=== PATIENT | female | born 1945 | race Caucasian/White ===

== ENCOUNTER 2022-04-07 17:48 | Emergency (ER) | payer OTHER, MEDICARE, BC, SELFPAY ==
[2022-04-07] VITALS (35 sets, daily range): BP systolic 127–210; BP diastolic 59–129; PULSE 52–85; RESP 12–52; O2SAT 86–100
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
--- NOTE | 2022-04-07 18:18 | ED.GENADULT ---
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 acetaminophen/Tylenol/paracetamol in it, DO NOT TAKE MORE THAN 4,00mg in 24 hours of Tylenol. TRAMADOL DOES NOT CONTAIN TYLENOL 2. Please understand that we cannot provide further refills of narcotics, benzodiazepines or controlled substances through the ED and her pain management will need to be through your provider. 3. While on these medications you cannot drive or operate heavy machinery. 4. You cannot sign legal documents or perform any duties such as this. 5. As long as you're taking opiate pain medications he should also be taking a stool softener such as Colace, Dulcolax, MiraLAX or prune juice, to help avoid constipation. Prescriptions: New oxycodone-acetaminophen [Percocet] 5-325 mg tablet 1 tab PO Q6H PRN (Reason: pain) Qty: 10 0RF acetaminophen-codeine 300-15 mg tablet 1 tab PO QID PRN (Reason: pain) Qty: 14 0RF Referrals: Desiree Welch PA-C [Family Provider] - Visit Report Forms: Patient Portal/API
[2022-04-07] MEDS: SODIUM CHLORIDE 0.9% 1,000 ML 125 ML IV (18:20)
--- NOTE | 2022-04-07 18:22 | PC.NURSE ---
Pt log rolled during inital assessment with Dr Calderon and back board removed.
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
[2022-04-07 18:25] LABS: Add Manual Diff / Slide Review NO; Basophils Absolute Auto 0 /uL (0-100); Basophils Percent Auto 0.7 % (0-2); Eosinophils Absolute Auto 100 /uL (0-450); Eosinophils Percent Auto 1.9 % (2-4); Hematocrit 42.1 % (36-46); Hemoglobin 14.3 g/dL (12.0-16.0); Lymphocytes Absolute Auto 1400 /uL (1100-4500); Lymphocytes Percent Auto 26.5 % (25-40); Mean Corpuscular Hemoglobin 31.1 PG (26-34); Mean Corpuscular Volume 91.5 fL (80-100); Monocytes Absolute Auto 500 /uL (0-900); Monocytes Percent Auto 9.5 % (3-14); Neutrophils Absolute Auto 3100 /uL (1500-7000); Neutrophils Percent Auto 61.4 % (50-75); Platelet Count 148 X10^3/uL (150-400); Red Blood Cell Count 4.59 X10^6/uL (4.0-5.2); Red Cell Distribution Width 14.3 % (11.6-14.8); White Blood Cell Count 5.1 X10^3/uL (4.5-11.0)
[2022-04-07] MEDS: MORPHINE 2 MG/ML INJ IV ×2 (18:40→21:33)
[2022-04-07 18:45] LABS: INR 0.9 (0.9-1.3); Prothrombin Time 10.8 SECONDS (10.1-12.7)
[2022-04-07 18:47] LABS: PTT Partial Thromboplastin Tim 28 SECONDS (26-36)
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
[2022-04-07 19:02] LABS: Lactate (Lactic Acid) 1.7 mmol/L (0.7-2.1)
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
[2022-04-07 19:06] LABS: Alanine Aminotransferase 27 IU/L (<35); Albumin 3.8 g/dL (3.5-5.0); Albumin Globulin Ratio 1.5 (1.0-2.8); Alkaline Phosphatase 124 U/L (38-126); Aspartate Aminotransferase 38 IU/L (14-36); BUN Creatinine Ratio 21.6 (6-22); Bilirubin Total 0.3 mg/dL (0.2-1.3); Blood Urea Nitrogen 24 mg/dL (7-17); Calcium 8.9 mg/dL (8.4-10.2); Carbon Dioxide 24 mmol/L (22-32); Chloride 102 mmol/L (98-107); Creatine Kinase 120 U/L (30-135); Estimated Glomerular Filt Rate 51 mL/min (>60); Ethanol (ETOH) < 10 mg/dL; Globulin 2.6 g/dL (1.7-4.1); Glucose 120 mg/dL (80-110); HEMOLYSIS 19 (0-50); Lipase 109 U/L (23-300); Potassium 3.8 mmol/L (3.4-5.1); Sodium 136 mmol/L (137-145); Total Protein 6.4 g/dL (6.3-8.2)
--- NOTE | 2022-04-07 19:10 | PC.NURSE ---
Report received - assumed care of pt at this time
--- NOTE | 2022-04-07 19:14 | PC.NURSE ---
Pt's two rings taken off right hand and placed in a bag and labeled.
[2022-04-07 19:15] LABS: Troponin I < 0.012 ng/mL (0.01-0.034)
--- NOTE | 2022-04-07 19:15 | PC.NURSE ---
Xray at bedside
--- NOTE | 2022-04-07 19:15 | PC.NURSE ---
MD at bedside to staple the lac to the pt's head - tolerated well
[2022-04-07 19:20] LABS: CKMB % Relative Index 2.9 % (1.5-5.0); Creatine Kinase MB 3.44 ng/mL (<2.37)
--- NOTE | 2022-04-07 19:30 | PC.NURSE ---
speaking with grand daughter on the phone - alert and oriented - PWD with respirations equal and unlabored bilaterally - airway patent - speaking in full clear sentences
--- NOTE | 2022-04-07 19:45 | PC.NURSE ---
towels changed behind the patient's head as they were wet - warm blankets applied for warmth and comfort wound care performed to scalp and right hand - face and hand and head gently cleaned of dried blood - xeroform gauze applied to the 2 abrasions/skin tears to the right hand and wrist after being cleansed and dried - covered with telfa gauze pad and kendra wrap used to hold in place - tolerated well
--- NOTE | 2022-04-07 20:00 | PC.NURSE ---
Lights dimmed and assisted to position of comfort - pt resting quietly at this time
[2022-04-07 20:01] LABS: COVID19 -Nasal RAPID Negative (Negative)
--- NOTE | 2022-04-07 20:45 | PC.NURSE ---
In room to recheck the patient - states that she is hurting when she moves - bed adjusted in small increments to assist with the pain - tolerates with difficulty
--- NOTE | 2022-04-07 20:50 | PC.NURSE ---
Son to bedside
[2022-04-07] MEDS: NALOXONE 0.4 MG/ML VIAL IV (21:52)
--- NOTE | 2022-04-07 22:00 | PC.NURSE ---
2100: Patient assisted to get up and dressed - stated that she was dizzy when she first sat up - would like pain medication - states that she is unable to take hydrocodone and oxycodone due to an allergic reaction that almost killed her - states that she did ok with the morphine today and that she can take tylenol with codeine - discussed with the MD - orders to give the patient a small dose of morphine IV prior to leaving the ER as well as tylenol - pt ok with plan 0: Up to the bedside commode - clear yellow urine noted 5: pt sitting in bedside chair - doing well - dressed and ready to go home - able to move around the room with slow steady gait 3: medicated with IV morphine at this time 5: pt states that she is feeling dizzy at this time - speaking clearly in NAD - airway patent 2136: pt states that she is nauseas and dizziness is worse 2137: pt starting to fall asleep - shaking legs/feet - asked if she is ok - responds with slurred unintelligable words 2138: pt's head falls back and she begins to have snoring respirations - pulse ox placed on pt and her O2 on RA was 98% - assistance and MD called to room 2139: pt lifted to the bed - unresponsive - incontinent of urine 2140: placed on job cost estimator with cycling BP and continuous pulse ox - IV started to the left hand by MARIA DEL ROSARIO Zaragoza 2141: Md at bedside - pt responds to painful stimuli 2143: RT at bedside 2145: placed on 2L of O2 via NC and capnography 2150: given 0.1 of narcan IV - small movement of hand otherwise no response 2152: given 0.1 of narcan IV 2155: pt awakening at this time - does not remember the event - son at bedside - pt to continue being monitored for further reaction 2200: Continues to awaken more - speaking in clear sentences at this time - c/o headache and pain all over - airway patent - PWD with respirations equal and unlabored bilaterally - son at bedside
--- NOTE | 2022-04-07 22:30 | PC.NURSE ---
Repositioned to her left side for comfort - yells out in pain as she moves - able to reposition by self - recovered with warm blankets - speaking reno RN and family at bedside - states that her head hurts - clear voice - clear speech - airway patent - PWD - alert
--- NOTE | 2022-04-07 23:00 | PC.NURSE ---
Pt continues to rest quietly - yells out when moves stating that she feels like shit because she is hurting so much - awake and alert - respirations equal and unlabored bilaterally - PWD - Son at bedside - pt states that she wants to go home at this time - MD aware of pt's status
--- NOTE | 2022-04-07 23:15 | PC.NURSE ---
Assisted to stand and get dressed - up to w/c at bedside - alert and oriented - dizzy with changing positions but gets better when sitting still for a few minutes
[2022-04-07] MEDS: ACETAMINOPHEN 325 MG TABLET 975 MG PO (23:35)
== END 2022-04-07 23:43 | disposition home or self-care (01) ==
PROVIDERS: Emergency Provider Emergency Medicine; Family Provider Physician Assistant Medical; PCP Physician Assistant Medical
DX: S01.01XA Laceration without foreign body of scalp, initial encounter (principal); M79.601 Pain in right arm; R55 Syncope and collapse; V43.52XA Car driver injured in collision with other type car in traffic accident, initial encounter; Z20.822 Contact with and (suspected) exposure to COVID-19
CPT/HCPCS: 12001; 70450; 71045; 71260; 72125; 73060; 73080; 73090; 74177; 80053; 80320; 82550; 82553; 82962; 83605; 83690; 84484; 85025; 85610; 85730; 86850; 86870; 86900; 86901; 87635; 93005; 93010; 96361; 96374; 96376; 99285; 99291; 99292; C9803; J2270; J2310; Q9967

== ENCOUNTER → 2023-09-17 12:26 | Outpatient (CLI) | payer MEDICARE, BC, SELFPAY ==
--- NOTE | 2023-09-17 | DI.CT.S_ITS ---
PROCEDURE: CT SHOULDER RIGHT WITH CON INDICATIONS: ROTATOR CUFF SYNDROME TECHNIQUE: After the intra-articular administration of 12 mL of dilute non-ionic contrast, 1-1.5 mm thick sections acquired from the acromioclavicular joint to the inferior scapula, with coronal and sagittal reformatting. COMPARISON: [facility], CR, XR SHOULDER 2+ VIEWS RIGHT, 08/26/2023, 10:31[facility], RF, [place] SHOULDER INJECTION MR/CT RT, 09/17/2023, 12:04. FINDINGS: Image quality: Diagnostic Bones: The right acromioclavicular joint is unremarkable. The right clavicle is intact. Intra-articular contrast is seen in the right glenohumeral joint. No significant degenerative changes of the right glenohumeral joint. No acute fracture or dislocation of the right shoulder. The visualized right ribs are unremarkable. Soft tissues: No right axillary adenopathy. Ruptured right breast implant. Multiple pulmonary nodule in the right lung, with the largest measuring 6 mm (series 3, image 101), grossly unchanged in comparison to CT chest from 04/07/2022, favoring benign etiology given stability.. Moderate calcification of the aortic arch. Severe mitral annular calcification, partially visualized. No intra-articular contrast within the subacromial/subdeltoid space to suggest full-thickness tear of the supraspinatus and infraspinatus.. No significant fatty atrophy of the rotator cuff musculature. IMPRESSION: 1. No full-thickness tear of the supraspinatus or infraspinatus. 2. No significant degenerative changes of the acromioclavicular or glenohumeral joint. Dictated by: Brandy Christian M.D. on 09/17/2023 at 15:44 Approved by: Brandy Christian M.D. on 09/17/2023 at 15:54
--- NOTE | 2023-09-17 | DI.RAD.S_ITS ---
PROCEDURE: [place] SHOULDER INJECTION MR/CT RT INDICATIONS: ROTATOR CUFF SYNDROME COMPARISON: [facility], CT, CT SHOULDER RIGHT WITH CON, 09/17/2023, 13:23. TECHNIQUE: The indications, alternatives, benefits, risks, and complications of the procedure were explained to the patient. Written informed consent was obtained and placed in the chart. The shoulder was examined fluoroscopically and a site for needle placement chosen for entry into the glenohumeral joint from an anterior approach. The skin was prepped and draped in a sterile fashion, and 1% lidocaine infiltrated from skin down to joint capsule. A spinal needle was inserted into the glenohumeral joint, and a small amount of iodinated contrast media injected to confirm intra-articular placement of the needle tip. This was followed by approximately 12 mL of iodinated contrast. The needle was removed and a dressing was applied. The patient was given postprocedural instructions and sent to the CT suite for imaging. FINDINGS: A single fluoroscopic spot image demonstrates intra-articular location of injected iodinated contrast. IMPRESSION: Successful fluoroscopically guided administration of iodinated contrast solution into the shoulder joint for CT arthrogram. Dictated by: Roberto Campos M.D. on 09/17/2023 at 23:45 Approved by: Roberto Campos M.D. on 09/17/2023 at 23:46
[2023-09-17] MEDS: LIDOCAINE 1% 20 ML INJ (14:27)
== END ==
PROVIDERS: Family Provider Physician Assistant Medical; PCP Physician Assistant Medical; Referring Provider Orthopaedic Surgery; Visit Provider Orthopaedic Surgery
DX: M75.101 Unspecified rotator cuff tear or rupture of right shoulder, not specified as traumatic (principal)
CPT/HCPCS: 23350; 73040; 73201; Q9967

== ENCOUNTER → 2023-11-19 09:46 | Outpatient (CLI) | payer MEDICARE, BC, SELFPAY ==
--- NOTE | 2023-11-19 09:48 | DI.NM.S_ITS ---
PROCEDURE: NM RICKEY PERF SPECT R&S PHARM Rest and pharmacological stress myocardial perfusion SPECT with gated imaging and ejection fraction RADIOPHARMACEUTICAL: 12.5 mCi Tc-99m tetrafosmin IV at rest and 24.5 mCi Tc-99m tetrafosmin IV at peak effect of pharmacological stress. A [id number] was performed. INDICATIONS: Shortness of breath TECHNIQUE: Radiopharmaceutical was injected at peak stress test, and also at rest. SPECT images were obtained. SPECT myocardial perfusion images were displayed in short axis, horizontal long axis, and vertical long axis views. Gated images were reviewed using [employer] software. COMPARISON: None. CARDIAC STRESS: An exercise stress test was performed with a standard Garth protocol 2:51, maximum heart rate 105 bpm (80% peak predicted), maximum blood pressure 152/70, 4.6 METS AGUSTINA +24%. Due to excessive shortness of breath and 6 out of 10 chest pressure the test was switched to a pharmacologic study. A pharmacologic stress test was performed under the supervision of an attending staff, using an infusion of regadenoson 0.4 mg IV. Hemodynamic data: There is normal blood pressure and heart rate response to pharmacologic stress. Symptoms: The patient denied anginal chest pain. EKG: No diagnostic changes of ischemia; no ectopy. FINDINGS: Raw data: There is good myocardial uptake of radiotracer. No significant motion artifacts. Qqnh-hu-htvnl ratio is 0.30 (normal is less than 0.38 for tetrafosmin tracer). Left ventricle function: Gated images demonstrate normal left ventricular wall thickening. No segmental wall motion abnormalities. No transient ischemic dilation; TID is 1.18 (normal less than 1.3). Left ventricle resting end diastolic volume is 73 mL. Left ventricle stress ejection fraction is >75%; normal range is above 45%. Myocardial perfusion: There is normal distribution of activity in the right and left ventricular myocardium. No fixed or reversible perfusion defects. IMPRESSION: Exercise stress test converted to a pharmacologic study due to excessive shortness of breath and exercise-induced chest pressure. Low risk pharmacologic study. No evidence of pharmacologic induced ischemia or scar. Normal LV size with hyperdynamic function. Dictated by: Shanelle Garcia D.O. on 11/19/2023 at 17:19 Approved by: Shanelle Garcia D.O. on 11/19/2023 at 17:24
== END ==
PROVIDERS: Family Provider Physician Assistant Medical; PCP Physician Assistant Medical; Referring Provider Physician Assistant Medical; Visit Provider Physician Assistant Medical
DX: R06.02 Shortness of breath (principal)
CPT/HCPCS: 78452; 93017; A9502; J2785

== ENCOUNTER → 2024-01-25 10:39 | Outpatient (CLI) | payer MEDICARE, BC, SELFPAY | PROVIDERS: Family Provider Physician Assistant Medical; PCP Physician Assistant Medical; Referring Provider Internal Medicine Cardiovascular Disease; Visit Provider Internal Medicine Cardiovascular Disease | DX: R06.02 Shortness of breath (principal); Z87.891 Personal history of nicotine dependence | CPT/HCPCS: 94010; 94726; 94729 ==

== ENCOUNTER 2024-06-09 09:43 | Emergency (ER) | payer MEDICARE, BC, SELFPAY ==
[2024-06-09] VITALS (14 sets, daily range): BP systolic 129–194; BP diastolic 61–98; PULSE 52–90; RESP 12–35; TEMP 36.5; O2SAT 95–99
--- NOTE | 2024-06-09 10:12 | PC.NURSE ---
PT reports that she had a bout of diarrhea yesterday. Pt is speaking in full sentences. VSS. Denies pain. Just feeling off.
--- NOTE | 2024-06-09 10:15 | EKG_ITS ---
[place] [id number] [place] [id number] Test Date: 2024-06-09 Pat Name: Magali Hernadez Department: [facility] Room: Gender: Female Fitness Manager: RAZA : 1945 Requested By: Order Number: [id number] Reading MD: Jacobo Palmer MD Measurements Intervals [place] Rate: 61 P: ID: [id number] QRS: 60 QRSD: 84 T: 49 QT: 408 QTc: 410 Interpretive Statements Normal sinus rhythm Electronically Signed On 06-09-2024 16:25:11 PST by Jacobo Palmer MD
--- NOTE | 2024-06-09 10:28 | ED_ITS ---
HPI - General Adult General Chief complaint: Weakness Stated complaint: Starting feeling Dizzy, Lips are numb Time Seen by Provider: 06/09/24 10:25 Source: patient, RN notes reviewed and old records reviewed Mode of arrival: Wheelchair Limitations: no limitations History of Present Illness HPI narrative: 79-year-old female history of single kidney, prior unilateral mastectomy with complaint of diarrhea that she describes as the worst of her life starting at 2:30 a.m. yesterday she states she only had 1 episode last night and about 2 episodes today she describes it as watery and looking like enchilada sauce. Patient states she has not had any fevers she has had little bit of nausea here in the department but was not really having it before. States no chest pain no shortness of breath, patient has had some mild abdominal discomfort but states not a lot. She denies any dysuria urgency or frequency. Patient states today she had brought her daughter to wound care and was driving home when she was started to feel sort of lightheaded and her lips felt tingling and numb and she felt weird. She took a glucose tab she thought her sugar might be low but did not have any improvement. Patient does note she has had some leg cramping but this is not brand new. She does not have any known recent sick contacts. Patient states she was not on any prescription medications. Has a history of unilateral mastectomy in 1986, ex lap to evaluate kidney she does have a single kidney, hysterectomy and multiple orthopedic surgeries. States allergic to narcotics such as hydrocodone, she also does not tolerate yeast typically gets bad abdominal pain and cramping states this is different than that type of symptom. No tobacco, alcohol or recreational drugs. Mark Anthony lui as her primary care. She is accompanied by her daughter. Related Data Previous Rx's Medication Instructions Recorded acetaminophen 300 mg-codeine 15 mg 1 tab PO QID PRN pain #14 tabs 04/07/22 tablet oxycodone-acetaminophen 5 mg-325 1 tab PO Q6H PRN pain #10 tabs 04/07/22 mg tablet (Percocet) Allergies Allergy/AdvReac Type Severity Reaction Status Date / Time oxycodone Allergy Unknown Verified 04/07/22 17:54 Review of Systems Review of Systems ROS Unobtainable: All systems reviewed & are unremarkable except as noted in HPI and below Patient History Social History lives independently: Yes Smoking Status: Never smoker Smoking Status: Never smoker alcohol intake frequency: 0-2 drinks per day Exam Narrative Exam Narrative: GENERAL: Alert and oriented x three, female in mild distress HEENT: Head normocephalic, atraumatic, EOMI, pupils reactive, face symmetric, moist mucous membranes NECK: Supple, full range of motion CARDIOVASCULAR: Regular rate and rhythm without murmurs, rubs or gallops. RESPIRATORY: Breath sounds equal bilaterally, no wheezes rales or rhonchi. ABDOMEN: Soft, patient has some mild generalized tenderness. Normoactive bowel sounds all 4 quadrants. No guarding or rebound, rigidity, no mass : No CVA tenderness EXTREMITIES: Normal range of motion, no clubbing or edema. Neurovascularly intact NEUROLOGICAL: Cranial nerves II through XII grossly intact. Moving all extremities SKIN: Warm, dry, no petechiae, no rashes or lesions. Initial Vital Signs Initial Vital Signs: Vital Signs Pulse Rate 66 06/09/24 09:52 Respiratory Rate 21 06/09/24 09:52 Pulse Oximetry 98 06/09/24 09:52 Course Orders Ordered: ED Orders 06/09/24 10:05 Hepatic (Liver) Panel Stat Lipase Stat 06/09/24 10:08 Basic Metabolic Panel Stat Complete Blood Count AUTO DIFF Stat Troponin I Stat 06/09/24 10:15 EKG-12 Lead Stat 06/09/24 11:09 CT abdomen pelvis w con Stat 06/09/24 11:26 Covid-19 + FLU A/B + RSV - PCR Stat Discontinued Medications Sodium Chloride (Normal Saline 0.9%) 1,000 mls @ 150 mls/hr IV CONT DAVIDE Last Admin: 06/09/24 10:28 Dose: Not Given Documented By: Sodium Chloride (Normal Saline 0.9%) 1,000 mls @ 1,000 mls/hr IV BOLUS ONE Stop: 06/09/24 12:08 Last Infusion: 06/09/24 12:05 Dose: Infused Documented By: Admin: 06/09/24 11:16 Dose: 1,000 mls/hr Documented By: Ondansetron HCl (Ondansetron 4 Mg/2 Ml Inj) 4 mg IV NOW ONE Stop: 06/09/24 11:10 Last Admin: 06/09/24 11:16 Dose: 4 mg Documented By: Vital Signs Vital signs: Vital Signs - 8 hr 06/09/24 11:00 06/09/24 11:00 06/09/24 11:31 Pulse Rate 59 L 62 Respiratory Rate 21 35 H Blood Pressure 129/71 Pulse Oximetry 97 98 Oxygen Delivery Method 06/09/24 11:33 06/09/24 11:33 06/09/24 12:01 Pulse Rate 59 L 67 Respiratory Rate 16 28 H Blood Pressure 180/77 H Pulse Oximetry 99 95 Oxygen Delivery Method 06/09/24 12:03 06/09/24 12:03 06/09/24 12:04 Pulse Rate 53 L Respiratory Rate 16 Blood Pressure 194/71 H 186/81 H Pulse Oximetry 98 Oxygen Delivery Method 06/09/24 12:04 06/09/24 12:30 06/09/24 12:31 Pulse Rate 54 L 52 L Respiratory Rate 17 12 Blood Pressure 175/76 H Pulse Oximetry 99 99 Oxygen Delivery Method 06/09/24 12:31 06/09/24 13:00 06/09/24 13:01 Pulse Rate 52 L 54 L 55 L Respiratory Rate 20 15 16 Blood Pressure 160/70 H Pulse Oximetry 99 99 99 Oxygen Delivery Method Room Air 06/09/24 13:01 Pulse Rate 53 L Respiratory Rate 18 Blood Pressure Pulse Oximetry 99 Oxygen Delivery Method Medical Decision Making Lab Data 06/09/24 10:08 06/09/24 10:08 Labs: Lab Results 06/09/24 06/09/24 06/09/24 Range/Units 10:05 10:08 11:26 WBC 4.3 L (4.5-11.0) X10^3/uL RBC 4.73 (4.0-5.2) X10^6/uL Hgb 15.0 (12.0-16.0) g/dL Hct 44.4 (36-46) % MCV 93.9 (80-100) fL MCH 31.7 (26-34) PG MCHC 33.7 (30-36) % RDW 14.0 (11.6-14.8) % Plt Count 158 (150-400) X10^3/uL Neut % (Auto) 57.9 (50-75) % Lymph % (Auto) 30.1 (25-40) % [place] % (Auto) 9.2 (3-14) % Eos % (Auto) 2.1 (2-4) % Baso % (Auto) 0.7 (0-2) % Neut # (Auto) 2500 (4554-2832) /uL Lymph # (Auto) 1300 (1714-2346) /uL [place] # (Auto) 400 (0-900) /uL Eos # (Auto) 100 (0-450) /uL Baso # (Auto) 0 (0-100) /uL Sodium 140 (137-145) mmol/L Potassium 4.4 (3.4-5.1) mmol/L Chloride 106 (98-107) mmol/L Carbon Dioxide 26 (22-32) mmol/L BUN 18 H (7-17) mg/dL Creatinine 0.99 (0.52-1.04) mg/dL Estimated GFR 57 L (>60) mL/min BUN/Creatinine Ratio 18.2 (6-22) Glucose 125 H (80-110) mg/dL Calcium 9.8 (8.4-10.2) mg/dL Total Bilirubin 0.4 (0.2-1.3) mg/dL Conjugated Bilirubin 0.0 (0.0-0.3) md/dL Unconjugated Bilirubin 0.2 (0.0-1.1) mg/dL AST 28 (14-36) IU/L ALT 23 (<35) IU/L Alkaline Phosphatase 82 (38-126) U/L Troponin I < 0.012 (0.01-0.034) ng/mL Total Protein 6.1 L (6.3-8.2) g/dL Albumin 3.9 (3.5-5.0) g/dL Globulin 2.2 (1.7-4.1) g/dL Albumin/Globulin Ratio 1.8 (1.0-2.8) Lipase 97 (23-300) U/L SARS-CoV-2 (PCR) Negative (Negative) Influenza A (RT-PCR) Flu a negative (NEGATIVE) Influenza B (RT-PCR) Flu b negative (NEGATIVE) RSV (PCR) Negative (Negative) Point of Care Testing Glucose POC 153 Urine Dip Bedside Urine Glucose Negative Bedside Urine Bilirubin - Negative Bedside Urine Ketone - Negative Urine Specific [place] 1.010 Bedside Urine Occult Blood - Negative Bedside Urine pH 6.0 Bedside Urine Protein - Negative Bedside Urine Urobilinogen - Negative Bedside Urine Nitrite - Negative Bedside Urine Leukocytes - Negative Esterase Point of care testing: Point of Care Testing Glucose POC 153 Urine Dip Bedside Urine Glucose Negative Bedside Urine Bilirubin - Negative Bedside Urine Ketone - Negative Urine Specific [place] 1.010 Bedside Urine Occult Blood - Negative Bedside Urine pH 6.0 Bedside Urine Protein - Negative Bedside Urine Urobilinogen - Negative Bedside Urine Nitrite - Negative Bedside Urine Leukocytes - Negative Esterase ECG Data Attestation: I personally reviewed and interpreted this ECG as follows: Interpretation: Sinus rhythm rate of 61 [place] 182 QRS 84 QTC of 410. Appears to have little bit of motion artifact MDM Narrative Medical decision making narrative: Labs show white count of 4.3 hemoglobin and platelets are appropriate. Coags are negative, electrolytes are appropriate BUN 18 creatinine 0.99 glucose is 125 calcium is 9.8 troponins less than 0.012 Hepatic profile normal bilirubin AST ALT and alk-phos lipase is 97. COVID/influenza/RSV is negative EKG shows sinus rhythm CT abdomen pelvis shows no acute change Point of care urine is negative Patient received fluids and Zofran. On recheck patient feels slightly improved does not feel lightheaded or like she was going to pass out. Has not any additional episodes of diarrhea except for 1 here which we did not get a sample. Patient did have a bowel movement here but did not give a sample. Overall has a benign exam has been afebrile nontoxic appearing and felt appropriate for discharge home suspect she may have a gastroenteritis but discussed with the patient watchful waiting and return precautions if there is other potential for her symptoms. Patient feels comfortable with discharge home. States the Zofran did not make much difference she did not really feel all that nauseated so we will hold off can try a little bit of Imodium [id number]. Discussed return precautions all questions answered. Discharge Plan Departure Patient Disposition: Home Clinical Impression: Diarrhea Activity Restrictions/Additional Instructions: Please follow up for recheck your workup today did not show a clear source for your symptoms but there is potential that you may have little bit of a viral gastroenteritis. You can take Imodium [id number] for diarrhea. Please return for fevers, new abdominal pain, back or flank pain, any persistent vomiting, black or bloody stools, lightheadedness or passing out or other new or concerning changes. Prescriptions: No Action oxycodone-acetaminophen [Percocet] 5-325 mg tablet 1 tab PO Q6H PRN (Reason: pain) Qty: 10 0RF acetaminophen-codeine 300-15 mg tablet 1 tab PO QID PRN (Reason: pain) Qty: 14 0RF Referrals: Dayami Lui PA-C [Primary Care Provider] - Stand Alone Forms: Patient Portal/API/Survey
[2024-06-09 10:36] LABS: BUN Creatinine Ratio 18.2 (6-22); Blood Urea Nitrogen 18 mg/dL (7-17); Calcium 9.8 mg/dL (8.4-10.2); Carbon Dioxide 26 mmol/L (22-32); Chloride 106 mmol/L (98-107); Estimated Glomerular Filt Rate 57 mL/min (>60); Glucose 125 mg/dL (80-110); HEMOLYSIS 19 (0-50); Potassium 4.4 mmol/L (3.4-5.1); Sodium 140 mmol/L (137-145)
[2024-06-09 10:39] LABS: Add Manual Diff / Slide Review NO; Basophils Absolute Auto 0 /uL (0-100); Basophils Percent Auto 0.7 % (0-2); Eosinophils Absolute Auto 100 /uL (0-450); Eosinophils Percent Auto 2.1 % (2-4); Hematocrit 44.4 % (36-46); Lymphocytes Absolute Auto 1300 /uL (1100-4500); Lymphocytes Percent Auto 30.1 % (25-40); Mean Corpuscular HGB Conc 33.7 % (30-36); Mean Corpuscular Hemoglobin 31.7 PG (26-34); Mean Corpuscular Volume 93.9 fL (80-100); Monocytes Absolute Auto 400 /uL (0-900); Monocytes Percent Auto 9.2 % (3-14); Neutrophils Absolute Auto 2500 /uL (1500-7000); Neutrophils Percent Auto 57.9 % (50-75); Platelet Count 158 X10^3/uL (150-400); Red Blood Cell Count 4.73 X10^6/uL (4.0-5.2); White Blood Cell Count 4.3 X10^3/uL (4.5-11.0)
[2024-06-09 10:48] LABS: Troponin I < 0.012 ng/mL (0.01-0.034)
--- NOTE | 2024-06-09 11:09 | DI.CT.S_ITS ---
PROCEDURE: CT ABDOMEN PELVIS W CON INDICATIONS: diarrhea x 24hours, abd pain TECHNIQUE: After the administration of intravenous contrast, axial sections acquired from the lung bases to the pubic symphysis. Coronal and sagittal reformats were performed. For radiation dose reduction, the following was used: automated exposure control, adjustment of mA and/or kV according to patient size. COMPARISON: None. FINDINGS: Image quality: Diagnostic. Lower Chest: No significant findings. ABDOMEN: Liver: No solid mass. Gallbladder: No radiopaque gallstones or wall thickening. Biliary ducts: No biliary dilation. Pancreas: No ductal dilation. Spleen: Size is within normal limits. Adrenal Glands: No adrenal nodules. Kidneys and Ureters: No hydronephrosis. No solid mass. No complex renal cystic lesion which requires follow up. Stomach and Bowel: Normal colonic caliber, without significant wall thickening. Peritoneum: No abnormal intraperitoneal fluid. No free air. Ventral Wall: No significant ventral hernia. Abdominal Nodes: No retroperitoneal or mesenteric adenopathy by size criteria. Vessels: Aorta and inferior vena cava are normal in size. PELVIS: Pelvic Organs: Unremarkable. Bladder: No bladder wall thickening, accounting for underdistention. Pelvic Nodes: No enlarged lymph nodes. Miscellaneous: No inguinal hernias are seen. Bones: No aggressive osseous abnormality. IMPRESSION: Normal examination, source of current symptoms is not seen. Dictated by: Marcelino Rader M.D. on 06/09/2024 at 11:44 Approved by: Marcelino Rader M.D. on 06/09/2024 at 11:48
[2024-06-09] MEDS: ONDANSETRON 4 MG/2 ML INJ IV (11:16)
[2024-06-09] MEDS: SODIUM CHLORIDE 0.9% 1,000 ML 1000 ML IV (11:16)
[2024-06-09 11:34] LABS: Alanine Aminotransferase 23 IU/L (<35); Albumin 3.9 g/dL (3.5-5.0); Albumin Globulin Ratio 1.8 (1.0-2.8); Alkaline Phosphatase 82 U/L (38-126); Aspartate Aminotransferase 28 IU/L (14-36); Bilirubin Total 0.4 mg/dL (0.2-1.3); Bilirubin Unconjugated 0.2 mg/dL (0.0-1.1); Globulin 2.2 g/dL (1.7-4.1); HEMOLYSIS 28 (0-50); Lipase 97 U/L (23-300); Total Protein 6.1 g/dL (6.3-8.2)
[2024-06-09 12:43] LABS: Influenza A - CEPHEID Flu A NEGATIVE (NEGATIVE); Influenza B - CEPHEID Flu B NEGATIVE (NEGATIVE); Respiratory Syncytial Virus Negative (Negative)
[2024-06-09 13:07] LABS: COVID-19 CEPHEID 4-PLEX PCR Negative (Negative)
== END 2024-06-09 13:40 | disposition home or self-care (01) ==
PROVIDERS: Emergency Provider Emergency Medicine; Family Provider Physician Assistant Medical; PCP Physician Assistant Medical
DX: R19.7 Diarrhea, unspecified (principal); R11.0 Nausea; R42 Dizziness and giddiness; R10.9 Unspecified abdominal pain
CPT/HCPCS: 0241U; 74177; 80048; 80076; 81003; 82962; 83690; 84484; 85025; 93005; 93010; 96361; 96374; 99284; J2405; Q9967